=== PATIENT | male | born 1980 | race Caucasian/White ===

== ENCOUNTER 2017-12-27 02:53 | Emergency (ER) | payer MEDICAID ==
[~2017-12-27] VITALS: Ht 182.9 cm; Wt 90.7 kg
[2017-12-27 03:01] VITALS: Ht 182.9 cm; Wt 90.7 kg
[2017-12-27 04:18] VITALS: BP 157/82
== END 2017-12-27 04:18 | disposition other institution (70) ==
LOC: ED 02:53
DX: S33.5XXA Sprain of ligaments of lumbar spine, initial encounter (principal); F20.9 Schizophrenia, unspecified; X58.XXXA Exposure to other specified factors, initial encounter; Y93.89 Activity, other specified; Y92.89 Other specified places as the place of occurrence of the external cause; Y99.8 Other external cause status
CPT/HCPCS: J1885

== ENCOUNTER 2017-12-27 02:53 | Emergency (ER) | payer OTHER | END 2017-12-27 04:18 | disposition other institution (70) | LOC: ED 02:53 | DX: Z02.89 Encounter for other administrative examinations (principal) ==